=== PATIENT | male | born 1960 | race Caucasian/White ===

== ENCOUNTER 2016-07-23 10:12 | Emergency (ER) | payer OTHER ==
[~2016-07-23] VITALS: Ht 182.9 cm; Wt 67.0 kg
[2016-07-23 10:15] VITALS: BP 112/80; PULSE 89; RESP 16; TEMP 98.4; O2SAT 97
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
[2016-07-23] MEDS ORDERED: MOBI15TA PO (11:47)
[2016-07-23] MEDS ORDERED: ROBA750T PO (11:47)
[2016-07-23] MEDS ORDERED: TRAM50TA PO (11:48)
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
== END 2016-07-23 12:36 | disposition home or self-care (01) ==
LOC: PHED 10:12
DX: S16.1XXA Strain of muscle, fascia and tendon at neck level, initial encounter (principal); S39.012A Strain of muscle, fascia and tendon of lower back, initial encounter; S60.812A Abrasion of left wrist, initial encounter; S80.811A Abrasion, right lower leg, initial encounter; V43.52XA Car driver injured in collision with other type car in traffic accident, initial encounter; Y93.9 Activity, unspecified; Y92.9 Unspecified place or not applicable; Y99.9 Unspecified external cause status
CPT/HCPCS: 72040; 72100; 73110; 73130; 73590; 99284